=== PATIENT | female | born 2005 | race Caucasian/White ===

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

== ENCOUNTER 2023-10-23 23:00 | Inpatient (IN) ==
[2023-10-23] MEDS ORDERED: OXYTOCIN 30 UNITS/NSS 30 UNITS/500 ML BAG IV PRN (23:20)
[2023-10-23] MEDS ORDERED: LIDOCAINE 1% LOCAL 20 ML VIAL INFIL PRN (23:20)
--- NOTE | 2023-10-23 23:23 | History & Physical Report ---
Date of Service October 23, 2023 Assessment & Plan (1) Supervision of normal first : Plan: Admit to L&D. EFM/toco. Labs. Hopes to ambulate, hoping to go without epidural if possible. History of Present Illness Chief Complaint: labor Primary Care Provider: Ariane Dubon MD 18yo @ 40 09/12, presented to L&D with contractions every few minutes, gush of clear fluid upon arrival to the unit. + movement. Scant vaginal bleeding. Allergies Allergy/AdvReac Type Severity Reaction Status Date / Time No Known Allergies Allergy Verified 10/22/23 13:41 Home Medications Medication Instructions Recorded Confirmed Type vit-iron fum-folic ac 1 tab PO DAILY 03/29/23 10/22/23 History [ Vitamin] aspirin 81 mg tablet,delayed 81 mg PO DAILY 06/12/23 10/22/23 History release ferrous sulfate 325 mg (65 mg 325 mg PO DAILY 10/20/23 10/22/23 History iron) tablet (iron) Patient History Medical History (Updated 10/20/23 @ 21:41 by Linnea Garcia MD, FACOG) Varicella vaccine Alpha thalassemia trait Overweight (BMI 25.0-29.9) Dysmenorrhea Resolved. Seen by gynecology and given OCPs. Surgical History S/P wisdom tooth extraction H/O adenoidectomy Thyroglossal duct cyst H/O elbow surgery Hx of tonsillectomy Family History Grandfather (Paternal) Colorectal cancer Grandfather Breast cancer Mother Thyroid disease Father No significant active problems Grandfather (Maternal) Myocardial infarction Denies family history of Ovarian cancer Prostate cancer Uterine cancer Social History Smoking Status: Never smoker Second Hand Exposure: No; Do You Dip or Chew Tobacco: No; Hx Alcohol Use: No Hx Substance Use: No Preferred Language: Mongolian marital status: Single marital status details: Nuris Martin [phone] Current Living Situation: Parent and Family Current Living Situation Comment: Lives with dad, mom, no pets current occupational status: unemployed current occupation: currenty in nursing school Feels Safe at Home: Yes Childhood Exposure to Second-Hand Smoke: No Dental Care, Regularly: Yes Seatbelt Use: always Sunscreen Use: Yes Review of Systems All systems reviewed & are unremarkable except as noted in HPI & below Physical Exam Physical Exam: FHT Cat 1 [place] Q 2-4 SVE 3/100/-1 Grossly ruptured, positive nitrizine. Constitutional: WD/WN, vitals as above Respiratory: normal respiratory effort, lungs clear to auscultation no respiratory distress Cardiovascular: Rate/Rhythm: regular rate and regular rhythm Gastrointestinal (Abdomen): Inspection/Auscultation: abdomen normal to inspection Percussion/Palpation: abdomen soft; abdomen nontender Gravid. No s/s chorio or abruption. Skin: no rashes, warm and dry Psychiatric: A+Ox3, euthymic affect Results & Data Vital Signs (Past 12 Hours) Vital Signs Pulse BP 10/23/23 23:19 95 H 135/96 Coding Level of Care Code None Diagnoses Supervision of normal first Z34.00
[2023-10-23 23:59] LABS: Hematocrit (blood only) 32.9 % (37.0-47.0); Hemoglobin 10.2 g/dl (12.0-16.0); Mean Corpuscular Hemoglobin 22.7 pg (25.0-34.0); Mean Corpuscular Volume 73.1 fL (80.0-100.0); Platelet Count 212 K/uL (130-400); RDW Coefficient of Variation 16.8 % (11.5-14.5); RDW Standard Deviation 42.5 fL (36.4-46.3); White Blood Count 12.37 K/ul (4.8-10.8)
[2023-10-24 00:07] LABS: Alanine Aminotransferase 8 U/L (7-52); Albumin Level 3.4 gm/dl (3.4-5.0); Alkaline Phosphatase 179 U/L (34-104); Anion Gap 9 (3-11); Aspartate Aminotransferase 14 U/L (13-39); BUN Creatinine Ratio 19.6 (10-20); Bilirubin,Total 0.2 mg/dl (0.2-1.0); Blood Urea Nitrogen 11 mg/dl (6-23); Calcium 8.9 mg/dl (8.6-10.3); Carbon Dioxide 21 mmol/L (21-32); Chloride 105 mmol/L (98-107); Est GFR (African American) > 150.0 ml/min; Est GFR (Non-African American) 134.2 ml/min; Globulin 3.4 gm/dl (2.5-4.0); Glucose 86 mg/dl (70-99(Fasting)); Potassium 4.1 mmol/L (3.5-5.1); Sodium 135 mmol/L (136-145); Total Protein 6.8 gm/dl (6.0-8.3)
[2023-10-24] MEDS: LACTATED RINGER'S 1,000 ML IV PRN (01:00)
[2023-10-24] MEDS ORDERED: fentaNYL citrate PF 100 MCG/2 ML VIAL ONE (01:26)
[2023-10-24] MEDS ORDERED: ePHEDrine sulfate 50 MG/ML AMP ONE (01:26)
[2023-10-24] MEDS ORDERED: SODIUM CHLORIDE 0.9% PF INJ 10 ML VIAL ONE (01:26)
--- NOTE | 2023-10-24 01:37 | Anesthesiology Consultation ---
Date of Service October 24, 2023 Assessment & Plan Chart Review Chart Review: Acceptable Risk for Labor Epidural Consults Requested none ASA ASA2 Proposed Anesthesia Anesthesia Type: Labor Epidural Risk / Benefits Reviewed With: PT / POA / Parent / Guardian, Accepts Plan and Informed Consent Obtained History Height/Weight Height: 5 ft 1 in Weight: 89.358 kg Allergies Allergy/AdvReac Type Severity Reaction Status Date / Time No Known Allergies Allergy Verified 10/22/23 13:41 Medications Home Medications Medication Instructions Recorded Confirmed Last Taken vit-iron fum-folic ac 1 tab PO DAILY 03/29/23 10/22/23 10/20/23 10:00 [ Vitamin] aspirin 81 mg tablet,delayed 81 mg PO DAILY 06/12/23 10/22/23 09/19/23 10:00 release ferrous sulfate 325 mg (65 mg 325 mg PO DAILY 10/20/23 10/22/23 10/20/23 10:00 iron) tablet (iron) Active Medications Generic Name Dose Route Start Last Admin Trade Name Freq PRN Reason Stop Dose Admin Lactated Ringer's 1,000 mls @ 125 mls/hr 10/23/23 23:20 10/24/23 01:00 Lr IV 10/25/23 23:19 999 mls/hr .Q8H PRN Administration L&D Protocol Protocol Past Medical History Medical History Varicella vaccine Alpha thalassemia trait Overweight (BMI 25.0-29.9) Dysmenorrhea Resolved. Seen by gynecology and given OCPs. Exercise / Class Metabolic Activity II 4-5 Yardwork/Stairs/Walk up hill Past Family History Family History Grandfather (Paternal) Colorectal cancer Grandfather Breast cancer Maternal great grandfather Mother Thyroid disease Father No significant active problems Grandfather (Maternal) Myocardial infarction Denies family history of Ovarian cancer Prostate cancer Uterine cancer Past Surgical History Surgical History S/P wisdom tooth extraction H/O adenoidectomy Thyroglossal duct cyst H/O elbow surgery Hx of tonsillectomy Past Anesthesia History No Hx of Anesthesia Complications and No Family Hx of Anesthesia Complications History of PONV No Hx of PONV and No Hx of Motion Sickness Social History Smoking Status: Never smoker Do You Dip or Chew Tobacco: No Hx Alcohol Use: No Hx Substance Use: No substance use type: does not use Physical Exam Vital Signs Last Vital Signs Temp 98.1 F 10/24/23 00:17 Pulse 95 H 10/23/23 23:19 Resp 18 10/24/23 00:17 BP 135/96 10/23/23 23:19 ENMT Mouth: no dentition abnormality Thyromental Distance: > or= 3.5 Finger Breadths Mallampati Class: II Neck normal visual inspection Respiratory normal respiratory effort Auscultation: lungs clear to auscultation bilaterally Cardiovascular Rate/Rhythm: regular rate and regular rhythm Testing Laboratory Results 10/23/23 23:33 10/23/23 23:33
[2023-10-24] MEDS ORDERED: LIDOCAINE 2%/EPINEPHRINE 1:200,000 20 ML PF EPI STA (01:55)
[2023-10-24] MEDS ORDERED: NALOXONE HCL 0.4 MG/1 ML VIAL/CARP IV PRN (01:55)
[2023-10-24] MEDS ORDERED: NALBUPHINE HCL 5 MG in SYRINGE 0 ML IV PRN (01:55)
[2023-10-24] MEDS ORDERED: NALOXONE HCL 1 MG in SODIUM CHLORIDE 0.9% 1,000 ML IV PRN (01:55)
[2023-10-24] MEDS ORDERED: ONDANSETRON INJ 2 MG/ML 2 ML VIAL IV PRN (01:55)
[2023-10-24] MEDS ORDERED: BUPIVACAINE 0.25% PF 30 ML VIAL EPI STA (01:55)
[2023-10-24] MEDS ORDERED: ePHEDrine sulfate 50 MG/ML AMP IV PRN (01:55)
[2023-10-24] MEDS ORDERED: diphenhydrAMINE 50 MG/ML VIAL IV PRN (01:55)
[2023-10-24] MEDS ORDERED: SODIUM CHLORIDE 0.9% PF INJ 10 ML VIAL EPI PRN (01:55)
[2023-10-24] MEDS ORDERED: fentaNYL citrate PF 100 MCG/2 ML VIAL EPI STA (01:55)
[2023-10-24] MEDS ORDERED: fentaNYL citrate PF 100 MCG/2 ML VIAL EPI PRN (01:55)
[2023-10-24] MEDS ORDERED: ROPIVACAINE 0.5% PF 5 MG/ML 20 ML VIAL EPI PRN (01:55)
[2023-10-24] MEDS ORDERED: BUPIVACAINE 0.25% PF 30 ML VIAL EPI PRN (01:55)
[2023-10-24] MEDS ORDERED: SODIUM CHLORIDE 0.9% PF INJ 10 ML VIAL EPI STA (01:55)
[2023-10-24] MEDS ORDERED: LIDOCAINE 2% MPF LOCAL 5 ML VIAL EPI PRN (01:55)
[2023-10-24] MEDS: fentANYL 2 MCG/ML BUPIVacaine 0.125%-NSS 100ML BAG ONE (01:56)
[2023-10-24] MEDS: BUPIVACAINE 0.25% PF 30 ML VIAL ONE (02:00)
[2023-10-24] MEDS: LIDOCAINE 2%/EPINEPHRINE 1:200,000 20 ML PF ONE (02:00)
[2023-10-24] MEDS: fentANYL 2 MCG/ML BUPIVacaine 0.125%-NSS 100ML BAG EPI PRN (06:48)
[2023-10-24] MEDS ORDERED: OXYTOCIN 30 UNITS/NSS 30 UNITS/500 ML BAG IV PRN ×2 (07:05→11:19)
--- NOTE | 2023-10-24 07:59 | Obstetrical Progress Note ---
Date of Service October 24, 2023 Assessment & Plan Admission and Anticipated Discharge Date Admission Date: October 23, 2023 Subjective Comfortable with epidural. FHT Cat 1 [place] Q 2 SVE 7/100/0 start pitocin. Pt agreeable. Results & Data Vital Signs (Past 12 Hours) Vital Signs Temp Pulse Resp BP Pulse Ox 10/24/23 07:56 103 H 96 10/24/23 07:51 122 H 98 10/24/23 07:46 100 H 97 10/24/23 07:43 107 H 124/81 10/24/23 07:41 102 H 97 10/24/23 07:36 106 H 97 10/24/23 07:31 97 H 98 10/24/23 07:27 105 H 131/86 10/24/23 07:26 113 H 98 10/24/23 07:21 97 H 99 10/24/23 07:16 97 H 98 10/24/23 07:12 92 H 132/85 10/24/23 07:11 92 H 97 10/24/23 07:06 93 H 98 10/24/23 07:05 37.1 C 16 10/24/23 07:01 89 98 10/24/23 07:00 18 10/24/23 07:00 18 10/24/23 06:57 82 126/74 10/24/23 06:56 90 96 10/24/23 06:51 103 H 98 10/24/23 06:46 91 H 97 10/24/23 06:43 93 H 132/82 10/24/23 06:41 93 H 97 10/24/23 06:36 89 96 10/24/23 06:31 94 10/24/23 06:31 88 10/24/23 06:31 88 94 10/24/23 06:27 86 135/75 10/24/23 06:26 81 96 10/24/23 06:21 82 97 10/24/23 06:18 90 92 10/24/23 06:16 84 97 10/24/23 06:13 85 127/71 10/24/23 06:11 85 97 10/24/23 06:06 83 97 10/24/23 06:01 89 97 10/24/23 06:00 16 10/24/23 06:00 16 10/24/23 05:57 81 126/70 10/24/23 05:56 89 96 10/24/23 05:51 86 96 10/24/23 05:46 85 96 10/24/23 05:42 83 123/85 10/24/23 05:41 85 97 10/24/23 05:36 91 H 97 10/24/23 05:31 90 96 10/24/23 05:30 16 10/24/23 05:30 16 10/24/23 05:27 91 H 119/72 10/24/23 05:26 86 97 10/24/23 05:21 94 H 96 10/24/23 05:16 100 H 96 10/24/23 05:14 18 10/24/23 05:14 37.2 C 18 10/24/23 05:12 98 H 128/67 10/24/23 05:11 106 H 96 10/24/23 05:06 98 H 96 10/24/23 05:02 99 H 94 10/24/23 05:01 116 H 97 10/24/23 05:00 18 10/24/23 05:00 18 10/24/23 04:58 107 H 128/65 10/24/23 04:56 99 H 96 10/24/23 04:51 109 H 96 10/24/23 04:46 101 H 96 10/24/23 04:42 96 H 114/66 10/24/23 04:41 95 H 96 10/24/23 04:36 95 H 96 10/24/23 04:31 108 H 96 10/24/23 04:30 16 10/24/23 04:30 16 10/24/23 04:27 92 H 121/67 10/24/23 04:26 88 96 10/24/23 04:21 95 H 95 10/24/23 04:16 99 H 96 10/24/23 04:13 99 H 121/72 10/24/23 04:11 112 H 96 10/24/23 04:06 101 H 96 10/24/23 04:01 109 H 96 10/24/23 04:00 16 10/24/23 04:00 16 10/24/23 03:58 94 H 119/72 10/24/23 03:56 105 H 96 10/24/23 03:51 102 H 96 10/24/23 03:48 18 10/24/23 03:48 37.0 C 18 10/24/23 03:46 100 H 96 10/24/23 03:42 102 H 118/70 10/24/23 03:41 101 H 96 10/24/23 03:36 103 H 96 10/24/23 03:31 99 H 96 10/24/23 03:30 18 10/24/23 03:30 18 10/24/23 03:28 98 H 123/73 10/24/23 03:26 102 H 96 10/24/23 03:21 98 H 96 10/24/23 03:16 104 H 96 10/24/23 03:12 104 H 116/63 10/24/23 03:11 103 H 97 10/24/23 03:06 102 H 97 10/24/23 03:01 99 H 96 10/24/23 02:57 106 H 129/66 10/24/23 02:56 98 H 97 10/24/23 02:51 93 H 97 10/24/23 02:46 93 H 97 10/24/23 02:41 101 H 97 10/24/23 02:39 96 H 123/76 10/24/23 02:36 100 H 96 10/24/23 02:34 93 H 127/78 10/24/23 02:31 95 H 97 10/24/23 02:29 88 122/77 10/24/23 02:26 98 10/24/23 02:26 90 10/24/23 02:26 88 117/78 10/24/23 02:21 90 99 10/24/23 02:20 84 128/77 10/24/23 02:16 92 H 98 10/24/23 02:15 90 121/77 10/24/23 02:11 92 H 98 10/24/23 02:09 89 125/69 10/24/23 02:06 81 98 10/24/23 02:04 96 H 126/77 10/24/23 02:01 94 H 98 10/24/23 01:58 97 H 126/72 10/24/23 01:56 95 H 120/70 98 10/24/23 01:54 84 122/74 10/24/23 01:51 102 H 99 10/24/23 01:46 101 H 98 10/24/23 01:41 121 H 99 10/24/23 01:40 36.8 C 10/24/23 01:36 89 99 10/24/23 00:17 36.7 C 18 10/23/23 23:20 18 10/23/23 23:20 36.7 C 18 10/23/23 23:19 95 H 135/96 PG Care Time/CCT Total # of Minutes Spent Total Time Spent with Patient: Total time spent is greater than 50% in coordination of care (as documented) at patient's floor/unit and/or counseling patient: Coding Level of Care Code None
[2023-10-24] MEDS: miSOPROStoL 200 MCG TAB PR ONE (11:12)
[2023-10-24] MEDS ORDERED: bisacodyL 10 MG SUPP PR PRN (11:19)
[2023-10-24] MEDS ORDERED: DIPHTHER/TETAN/PERTUS Vaccine (Tdap, Adol/Adult) 0.5mL IM ONE (11:19)
[2023-10-24] MEDS ORDERED: HYDROCORTISONE ACETATE 25 MG SUPP PR PRN (11:19)
--- NOTE | 2023-10-24 11:45 | Delivery Summary ---
Vaginal Delivery Summary Date of Service October 24, 2023 Vaginal Delivery Summary DIAGNOSES: 1. [place] intrauterine at 40w3d gestation. 2. Spontaneous onset of labor. 3. Group B Streptococcus Neg. PROCEDURE: Spontaneous vaginal delivery without laceration. SURGEON: Malissa Cartwright MD. ROAD ADVISOR: None. ESTIMATED BLOOD LOSS: 400 mL. COMPLICATIONS: None. PLACENTA: Spontaneous and intact with a 3-vessel cord. DISPOSITION: Stable to labor and delivery. DESCRIPTION: The patient pushed well and brought the head to in DOA position. The 's head was allowed to deliver with contraction force and no further active pushing, with the perineum protected during this time. There was no nuchal cord. The right shoulder was anterior. The shoulders and body delivered without any difficulty, and the infant was placed on the maternal abdomen. It was vigorous and moving all extremities, and making respiratory efforts. The cord was doubly clamped by the MD and then cut by the FOB. The placenta delivered spontaneously and was noted to be intact and with a 3VC. The cervix, vagina and perineum were examined and were found to be without defect requiring repair. The fundus was firm and lochia minimal immediately after delivery. [facility] [place] [facility] [place] Vaginal Delivery Codes: 12366 global code for the antepartum, delivery, and post-
[2023-10-24] MEDS: IBUPROFEN 600 MG TAB PO PRN (11:51)
[2023-10-24] MEDS: ACETAMINOPHEN 325 MG TAB PO PRN (18:47)
[2023-10-24] MEDS: BENZOCAINE 20% SPRY 85 APPLN/85 GM CAN EXT PRN (19:12)
[2023-10-24] MEDS: DOCUSATE SODIUM 100 MG CAP PO SCH (20:21)
[2023-10-25] MEDS ORDERED: miSOPROStoL 200 MCG TAB ONE (01:32)
[2023-10-25 06:05] LABS: Hematocrit (blood only) 27.3 % (37.0-47.0); Hemoglobin 8.6 g/dl (12.0-16.0)
--- NOTE | 2023-10-25 06:30 | Obstetrical Progress Note ---
Date of Service <Deisi Carrington MD - Last Filed: 10/25/23 06:30> October 25, 2023 Assessment & Plan <Deisi Carrington MD - Last Filed: 10/25/23 06:30> (1) Encounter for assessment: Plan Patient with the above mentioned history and findings was evaluated at bedside and found awake, alert, oriented in all spheres, afebrile, and in no acute distress. Vital signs showed no fever and blood pressures remained stable. Her blood type is A positive and today's hemoglobin is adequate at 8.6 g/dL. She has not had symptoms of anemia such as lightheadedness or dizziness upon standing, palpitations, or tachycardia. Serologies are negative for GBS and patient is Rubella immune. Overall, patient is doing well clinically and meeting the desired milestone for her course. Will continue routine pp care. Will continue iron supp lements for management of anemia. If she remains stable, anticipate discharge tomorrow. All questions were answered. <Malissa Cartwright MD - Last Filed: 10/25/23 08:12> (1) Encounter for assessment: Subjective <Deisi Carrington MD - Last Filed: 10/25/23 06:30> Yudith is a 18 y/o female who is now PPD # 1 following at 40 2/7 weeks. Reports feeling well overall this morning. Refers mild abdominal cramping & 3/10 pain well managed on analgesics. Voiding spontaneously. Tolerating meals overnight and able to ambulate some. Has had bm and passed gas. Some persistent lochia with some improvement this morning. . Constitutional: no fever, no chills or no sweats Denies shortness of breath or difficulty breathing Cardiovascular: no chest pain or no palpitations Breast: no breast pain Genitourinary (female): no dysuria Neurologic: no headache(s) Denies changes in vision Physical Exam <Deisi Carrington MD - Last Filed: 10/25/23 06:30> General: Alert. Oriented to person, time, and place. Afebrile. No acute dis tress. Eyes: pupils equal and reactive to light bilaterally, extraocular movements intact. Cardiac: Regular rate and rhythm, no murmurs/rubs/gallops. Respiratory: Clear to auscultation bilaterally a/p, no wheezes/rales/rhonchi. No increased work of breathing. Symmetrical chest rise. No respiratory distress. Abdomen: Soft, nontender, nondistended. Bowel sounds present. Uterus: Uterine fundus firm, mildly tender, and palpable at umbilicus. Lower Extremities: Bilateral LE swelling. No deep calf pain. Diana's negative bilaterally. Psych: Euthymic affect. Mood and affect congruence. Regular speech rate and content. Results & Data <Deisi Carrington MD - Last Filed: 10/25/23 06:30> Vital Signs (Past 12 Hours) Vital Signs Temp Pulse Resp BP O2 Del Method 10/25/23 04:07 36.4 C L 88 16 124/82 Room Air 10/24/23 23:47 36.4 C L 80 16 114/77 Room Air 10/24/23 20:10 36.6 C 99 H 14 140/83 Room Air Supervising Physician <Malissa Cartwright MD - Last Filed: 10/25/23 08:12> Co-Signing Physician Notes Resident Physician Supervision Note: I interviewed and examined the patient. Discussed with Dr. Carrington and agree with findings and plan as documented in the note. Any exceptions or clarifications are listed here: [ ] Documented By: Malissa Cartwright MD, FACOG
[2023-10-25] MEDS: FERROUS SULFATE 325 MG TAB PO SCH (08:35)
[2023-10-25] MEDS: PRENATAL VITAMIN 1 TAB PO SCH (08:35)
[2023-10-25] MEDS ORDERED: PRENATAL VIT IRON FUM FOLIC AC PO SCH (09:00)
[2023-10-25] MEDS ORDERED: ASPIRIN 81 MG ECTAB PO SCH (09:00)
[2023-10-25] MEDS: bisacodyL 5 MG TABEC PO SCH (21:06)
--- NOTE | 2023-10-26 06:44 | Obstetrical Progress Note ---
Date of Service <Deisi Carrington MD - Last Filed: 10/26/23 06:44> October 26, 2023 Assessment & Plan <Deisi Carrington MD - Last Filed: 10/26/23 06:44> (1) Encounter for assessment: Plan Patient with the above mentioned history and findings was evaluated at bedside and found awake, alert, oriented in all spheres, afebrile, and in no acute distress. Vital signs showed no fever and blood pressures remained stable. Her blood type is A positive and today's hemoglobin is adequate at 8.6 g/dL. She has not had symptoms of anemia such as lightheadedness or dizziness upon standing, palpitations, or tachycardia. Serologies are negative for GBS and patient is Rubella immune. Overall, patient is doing well clinically and meeting the desired milestone for her course. Therefore, will discharge patient today. Patient was c ounselled on discharge instructions. She is to make an appointment with her OB for 6 weeks after discharge for follow up evaluation. All questions were answered. <Linnea Garcia MD, FACOG - Last Filed: 10/26/23 07:24> (1) Encounter for assessment: Day #:: 2 Subjective <Deisi Carrington MD - Last Filed: 10/26/23 06:44> Yudith is a 18 y/o female who is now PPD # 2 following at 40 2/7 weeks. Reports feeling well overall this morning. Refers mild abdominal cramping & 3/10 pain well managed on analgesics. Voiding spontaneously. Tolerating meals overnight and able to ambulate some. Has had bm and passed gas. Some persistent lochia with some improvement this morning. without difficulty. Constitutional: no fever, no chills or no sweats Denies shortness of breath or difficulty breathing Cardiovascular: no chest pain or no palpitations Breast: no breast pain Genitourinary (female): no dysuria Neurologic: no headache(s) Denies changes in vision Physical Exam <Deisi Carrington MD - Last Filed: 10/26/23 06:44> General: Alert. Oriented to person, time, and place. Afebrile. No acute distress. Eyes: pupils equal and reactive to light bilaterally, extraocular movements intact. Cardiac: Regular rate and rhythm, no murmurs/rubs/gallops. Respiratory: Clear to auscultation bilaterally a/p, no wheezes/rales/rhonchi. No increased work of breathing. Symmetrical chest rise. No respiratory distress. Abdomen: Soft, nontender, nondistended. Bowel sounds present. Uterus: Uterine fundus firm, mildly tender, and palpable below umbilicus. Lower Extremities: Bilateral LE swelling. No deep calf pain. Diana's negative bilaterally. Psych: Euthymic affect. Mood and affect congruence. Regular speech rate and content. Results & Data <Deisi Carrington MD - Last Filed: 10/26/23 06:44> Vital Signs (Past 12 Hours) Vital Signs Temp Pulse Resp BP Pulse Ox O2 Del Method 10/25/23 23:28 36.5 C 85 18 123/82 97 Room Air 10/25/23 20:20 36.6 C 94 H 20 126/85 98 Room Air Supervising Physician <Linnea Garcia MD, FACOG - Last Filed: 10/26/23 07:24> Co-Signing Physician Notes Resident Physician Supervision Note: I was present with Dr. Carrington during the history and exam. I discussed the case with the resident and agree with the findings and plan as documented in the note. Any exceptions or clarifications are listed here: pt stable doing well. eating, voiding, ambulating without issues. breast feeding, rhpos, ri. abd soft ff 2 down nt, ext nt calves. ppd #2 s/p , dc home, instructions reviewed. f/u 6 wk pp check. Documented By: Linnea Garcia MD, FACOG
== END 2023-10-26 13:40 | disposition home or self-care (01) | DRG 807 ==
LOC: OPB 23:00 → 4S1 23:09 → 4E2 10-24 14:59
DX: O36.8130 Decreased fetal movements, third trimester, not applicable or unspecified; Z3A.40 40 weeks gestation of pregnancy; O80 Encounter for full-term uncomplicated delivery; Z79.82 Long term (current) use of aspirin; Z37.0 Single live birth; Z3A.39 39 weeks gestation of pregnancy; Z79.899 Other long term (current) drug therapy